=== PATIENT | female | born 1970 | race Caucasian/White ===

== ENCOUNTER → 2024-01-08 06:15 | Day surgery (SDC) | payer BC, SELFPAY | LOC: GI 06:15 | PROVIDERS: ATTENDING PHYSICIAN Internal Medicine | DX: Z12.11 Encounter for screening for malignant neoplasm of colon (principal); K57.30 Diverticulosis of large intestine without perforation or abscess without bleeding; K62.1 Rectal polyp | CPT/HCPCS: 45380; 88305 ==

== ENCOUNTER → 2024-02-15 19:04 | Outpatient (REF) | payer BC, SELFPAY | LOC: WDC 19:04 | PROVIDERS: ATTENDING PHYSICIAN Nurse Practitioner Family | DX: Z12.39 Encounter for other screening for malignant neoplasm of breast (principal); Z12.31 Encounter for screening mammogram for malignant neoplasm of breast | CPT/HCPCS: 77063; 77067 ==

== ENCOUNTER → 2024-02-19 08:28 | Outpatient (REF) | payer BC, SELFPAY ==
[2024-02-19 09:24] LABS: % Basophils 0.8 % (0-2); % Eosinophils 2.1 % (0-6); % Immature Granulocytes 0.2 % (0-0.5); % Lymphocytes 35.3 % (20.5-51.1); % Monocytes 8.7 % (1.7-9.3); % Neutrophils 52.9 % (42.2-75.2); Absolute Eosinophils 0.1 10^3/uL (0-0.7); Absolute Lymphocytes 1.7 10^3/uL (1.2-3.4); Absolute Monocytes 0.4 10^3/uL (0.1-0.6); Absolute Neutrophils 2.6 10^3/uL (1.4-6.5); Hematocrit 37.8 % (37.0-47.0); Hemoglobin 12.7 g/dL (12.0-16.0); Mean Corp Hgb Conc. 33.6 g/dL (33.0-37.0); Mean Corpuscular Hgb 29.2 pg (27.0-31.0); Mean Corpuscular Volume 86.9 fL (81.0-99.0); Mean Platelet Volume 11.4 fL (7.4-10.4); Nucleated Red Blood Cells % 0 %; Platelet Count 248 10^3/uL (130-400); Red Blood Cell Count 4.35 10^6/uL (4.20-5.40); Red Cell Dist. Width 12.8 % (11.5-14.5); White Blood Cell Count 4.8 10^3/uL (4.8-10.8)
[2024-02-19 09:46] LABS: ALT (SGPT) 35 U/L (0-35); AST (SGOT) 26 U/L (14-36); Albumin 4.2 g/dl (3.5-5.0); Alkaline Phosphatase 52 U/L (38-126); Blood Urea Nitrogen 18 mg/dl (7-17); Calcium 10.5 mg/dl (8.4-10.2); Carbon Dioxide 25 mmol/L (22-30); Chloride 106 mmol/L (98-107); Glucose 87 mg/dl (70-99); HDL Cholesterol 95 mg/dl; LDL Cholesterol, Calculated 63 mg/dl; Potassium 4.5 mmol/L (3.5-5.1); Sodium 139 mmol/L (135-145); Total Bilirubin 0.4 mg/dl (0.2-1.3); Total Cholesterol 170 mg/dl (50-199); Total Protein 6.8 g/dl (6.3-8.2); Triglyceride 64 mg/dl (10-149); Very Low Density Lipoprotein 12 mg/dl (0-30); eGFR > 60.00
[2024-02-19 10:17] LABS: TSH Reflex To Free T4 1.31 uIU/ml (0.47-4.68)
== END ==
LOC: REG 08:28
PROVIDERS: ATTENDING PHYSICIAN Nurse Practitioner Family
DX: Z00.00 Encounter for general adult medical examination without abnormal findings (principal)
CPT/HCPCS: 36415; 80053; 80061; 84443; 85025

== ENCOUNTER → 2024-03-04 13:15 | Outpatient (REF) | payer BC, SELFPAY | LOC: RAD 13:15 | PROVIDERS: ATTENDING PHYSICIAN Nurse Practitioner Adult Health; FAMILY PHYSICIAN Nurse Practitioner Family | DX: E01.0 Iodine-deficiency related diffuse (endemic) goiter (principal) | CPT/HCPCS: 76536 ==